=== PATIENT | female | born 1965 | race Caucasian/White ===

== ENCOUNTER 2022-10-26 07:35 | Outpatient (CLI) | payer MEDICAID, SELFPAY | END 2022-10-26 07:36 | disposition home or self-care (01) | LOC: NFLDREF 10-28 11:21 | PROVIDERS: PCP Family Medicine; Visit Provider Family Medicine | DX: Z00.00 Encounter for general adult medical examination without abnormal findings (principal); E55.9 Vitamin D deficiency, unspecified; E78.5 Hyperlipidemia, unspecified; I10 Essential (primary) hypertension; E66.01 Morbid (severe) obesity due to excess calories | CPT/HCPCS: 80053; 80061; 82306 ==

== ENCOUNTER 2022-11-16 10:01 | Outpatient (CLI) | payer MEDICAID, SELFPAY ==
--- NOTE | 2022-11-16 10:15 | CRLHL7_ITS ---
For Patients: As a result of the Century Cures Act, medical imaging exams and procedure reports are released immediately into your electronic medical record. You may view this report before your referring provider. If you have questions, please contact your health care provider. BILATERAL SCREENING MAMMOGRAM WITH COMPUTER-AIDED DETECTION TECHNIQUE: CC and MLO views were obtained. These mammographic images have been obtained using full-field digital technique. These mammographic images were interpreted with the benefit of computer-aided detection. COMPARISON FILM: 06/19/19. FINDINGS: There are scattered areas of fibroglandular density. IMPRESSION: There is no radiographic evidence for malignancy. ASSESSMENT: BI-RADS Category 1: Negative RECOMMENDATION: Routine screening mammogram in 1 year. A lay language report of this examination will be provided to the patient. SYDNIE TRAN M.D. Diagnostic/Breast Radiologist [email or web address] Transcribed: 11/16/2022, 1:[address]/Dictated by: Sydnie Tran MD @ 11/16/2022 12:10:00 PM (Electronically Signed)
== END 2022-11-16 10:02 | disposition home or self-care (01) ==
LOC: MAMMO 10:02
PROVIDERS: PCP Family Medicine; Visit Provider Family Medicine
DX: Z12.31 Encounter for screening mammogram for malignant neoplasm of breast (principal)
CPT/HCPCS: 77067

== ENCOUNTER 2023-11-16 11:06 | Outpatient (CLI) | payer MEDICAID, SELFPAY | END 2023-11-16 11:07 | disposition home or self-care (01) | LOC: NFLDREF 11-17 06:49 | PROVIDERS: PCP Family Medicine; Referring Provider Family Medicine; Visit Provider Family Medicine | DX: Z01.419 Encounter for gynecological examination (general) (routine) without abnormal findings (principal); E55.9 Vitamin D deficiency, unspecified; E78.5 Hyperlipidemia, unspecified; I10 Essential (primary) hypertension; M81.0 Age-related osteoporosis without current pathological fracture; E66.01 Morbid (severe) obesity due to excess calories; K76.0 Fatty (change of) liver, not elsewhere classified; D72.829 Elevated white blood cell count, unspecified; Z13.1 Encounter for screening for diabetes mellitus; Z79.899 Other long term (current) drug therapy; D75.1 Secondary polycythemia | CPT/HCPCS: 80053; 80061; 82306; 82728 ==

== ENCOUNTER 2023-12-11 09:54 | Outpatient (RCR) | payer MEDICAID, SELFPAY ==
[2023-12-11 10:37] LABS: Basophils Absolute Auto 0.05 K/uL (0.00-0.30); Basophils Percent Auto 0.5 % (0.0-3.0); Eosinophils Absolute Auto 0.38 K/uL (0.00-0.50); Eosinophils Percent Auto 3.9 % (0.0-7.0); Hematocrit 46.5 % (33.0-51.0); Hemoglobin* 14.9 gm/dL (12.0-16.0); Immature Granulocytes Abs Auto 0.03 K/uL (0.00-0.30); Immature Granulocytes Pct Auto 0.3 %; Lymphocytes Absolute Auto 3.71 K/uL (0.90-2.90); Lymphocytes Percent Auto 38.3 % (20-44); Mean Corpuscular HGB Conc 32 gm/dL (32-36); Mean Corpuscular Hemoglobin 29 pg (26-34); Mean Corpuscular Volume 89 fL (80-100); Monocytes Percent Auto 7.4 % (0.0-11.0); Neutrophils Absolute Auto 4.79 K/uL (1.7-7.0); Neutrophils Percent Auto 49.6 % (42.0-72.0); Platelet Count* 346 K/uL (140-440); RDW Coefficient of Variation % 14.1 % (11.5-15.5); White Blood Count* 9.68 K/uL (4.50-11.00)
[2023-12-11 11:04] LABS: Slide Review Reflex No
--- NOTE | 2024-01-23 13:15 | ONC.NURNOTE ---
Received repeat referral for polycythemia, new CBC was reviewed with hematology today. Hemaglobin normal, so not appropriate at this time. Hematology to see patient in future if has 2-3 elevated hemaglobins within a couple months. Message left for PCP and LMOM for patient to call [facility] back to discuss above.
== END 2024-06-08 23:59 | disposition home or self-care (01) ==
LOC: CCIC 09:54
PROVIDERS: PCP Family Medicine; Referring Provider Family Medicine; Visit Provider Clinical Nurse Specialist
DX: D75.1 Secondary polycythemia (principal)
CPT/HCPCS: 36415; 85025

== ENCOUNTER 2024-05-30 10:54 | Outpatient (CLI) | payer MEDICAID, SELFPAY ==
--- NOTE | 2024-05-30 11:30 | CRLHL7_ITS ---
For Patients: As a result of the Century Cures Act, medical imaging exams and procedure reports are released immediately into your electronic medical record. You may view this report before your referring provider. If you have questions, please contact your health care provider. BILATERAL SCREENING MAMMOGRAM WITH COMPUTER-AIDED DETECTION AND TOMOSYNTHESIS TECHNIQUE: CC and MLO views were obtained. These mammographic images have been obtained using full-field digital technique. These mammographic images were interpreted with the benefit of computer-aided detection. Breast Tomosynthesis was used in this interpretation. COMPARISON FILM: 11/16/22, 06/19/19. FINDINGS: The breasts are almost entirely fatty. IMPRESSION: There is no radiographic evidence for malignancy. ASSESSMENT: BI-RADS Category 1: Negative RECOMMENDATION: Routine screening mammogram in 1 year. A lay language report of this examination will be provided to the patient. Ab Chapman M.D. Diagnostic Radiologist [email or web address] SP/Dictated by: Ab Chapman MD @ 05/30/2024 12:08:00 PM (Electronically Signed)
== END 2024-05-30 10:55 | disposition home or self-care (01) ==
LOC: MAMMO 10:55
PROVIDERS: PCP Family Medicine; Visit Provider Family Medicine
DX: Z12.31 Encounter for screening mammogram for malignant neoplasm of breast (principal)
CPT/HCPCS: 77063; 77067

== ENCOUNTER 2024-07-17 13:57 | Outpatient (CLI) | payer MEDICAID, SELFPAY | END 2024-07-17 13:58 | disposition home or self-care (01) | LOC: NFLDREF 13:57 | PROVIDERS: PCP Family Medicine; Visit Provider Family Medicine | DX: I10 Essential (primary) hypertension (principal) | CPT/HCPCS: 80048 ==

== ENCOUNTER 2025-01-09 09:55 | Outpatient (CLI) | payer MEDICAID, SELFPAY | END 2025-01-09 09:56 | disposition home or self-care (01) | LOC: NFLDREF 01-15 17:39 | PROVIDERS: PCP Family Medicine; Referring Provider Family Medicine; Visit Provider Family Medicine | DX: E55.9 Vitamin D deficiency, unspecified (principal); I10 Essential (primary) hypertension; E78.5 Hyperlipidemia, unspecified | CPT/HCPCS: 80053; 80061; 82306 ==